=== PATIENT | female | born 1970 | race Native Hawaiian/Other Pacific Islander ===

== ENCOUNTER 2020-08-23 14:18 | Outpatient (CLI) | payer OTHER | END 2020-08-23 19:10 | disposition home or self-care (01) | LOC: RAD 14:18 | DX: J44.9 Chronic obstructive pulmonary disease, unspecified (principal); H54.62 Unqualified visual loss, left eye, normal vision right eye ==

== ENCOUNTER 2022-10-15 19:45 | Emergency (ER) | payer OTHER ==
[~2022-10-15] VITALS: Ht 162.6 cm; Wt 43.1 kg
[2022-10-15 20:00] VITALS: TEMP 98
[2022-10-15 21:34] VITALS: BP 121/82
== END 2022-10-15 21:34 | disposition home or self-care (01) ==
LOC: ED 19:45
DX: S20.211A Contusion of right front wall of thorax, initial encounter (principal); S29.011A Strain of muscle and tendon of front wall of thorax, initial encounter; Y04.0XXA Assault by unarmed brawl or fight, initial encounter; Y92.89 Other specified places as the place of occurrence of the external cause
CPT/HCPCS: 99283